=== PATIENT | female | born 1990 | race Caucasian/White ===

== ENCOUNTER 2017-12-17 16:46 | Emergency (ER) | payer OTHER ==
[~2017-12-17] VITALS: Ht 165.1 cm; Wt 70.8 kg
[~2017-12-17 16:46] MED LIST: DEPO
[2017-12-17] MEDS ORDERED: ULTRAM50 MG PO (17:10)
[2017-12-17 17:25] VITALS: BP 135/86
== END 2017-12-17 17:26 | disposition home or self-care (01) ==
LOC: EME 16:46
DX: S70.11XA Contusion of right thigh, initial encounter (principal); W22.8XXA Striking against or struck by other objects, initial encounter; Y93.89 Activity, other specified; Y99.0 Civilian activity done for income or pay; Z88.0 Allergy status to penicillin
CPT/HCPCS: 99281; 99282